=== PATIENT | male | born 1955 | race Caucasian/White ===

== ENCOUNTER 2020-06-04 19:43 | Inpatient (IN) | payer OTHER ==
[~2020-06-04] VITALS: Ht 162.6 cm; Wt 68.0 kg
[2020-06-04] MEDS ORDERED: CLONAZEPAM0.25 MG (20:11)
[2020-06-15] MEDS ORDERED: SINEMET PO (15:15)
[2020-06-15] MEDS ORDERED: [UNRECOGNIZED DRUG - OTHER] PO (15:15)
== END 2020-06-15 17:17 | disposition home or self-care (01) | DRG 177 ==
LOC: ER 19:43 → MEDJ 06-05 11:24
PROVIDERS: ADMIT Internal Medicine; ATTEND Internal Medicine
PROC: 4A033R1 Measurement of Arterial Saturation, Peripheral, Percutaneous Approach (ICD-10-PCS; principal; 2020-06-05)
PROC: 3E0F7SF Introduction of Other Gas into Respiratory Tract, Via Natural or Artificial Opening (ICD-10-PCS; 2020-06-05)
PROC: CB2YYZZ Tomographic (Tomo) Nuclear Medicine Imaging of Respiratory System using Other Radionuclide (ICD-10-PCS; 2020-06-05)
PROC: 8E0ZXY6 Isolation (ICD-10-PCS; 2020-06-05)
PROC: 4A12X4Z Monitoring of Cardiac Electrical Activity, External Approach (ICD-10-PCS; 2020-06-05)
DX: U07.1 COVID-19 (principal); J12.89 Other viral pneumonia; B37.1 Pulmonary candidiasis; B37.0 Candidal stomatitis; F41.8 Other specified anxiety disorders; R09.02 Hypoxemia; R74.01 Elevation of levels of liver transaminase levels; R43.0 Anosmia; R43.2 Parageusia; K76.0 Fatty (change of) liver, not elsewhere classified; F17.290 Nicotine dependence, other tobacco product, uncomplicated; G20 Parkinson's disease

== ENCOUNTER 2024-03-03 13:11 | Outpatient (CLI) | payer OTHER ==
[~2024-03-03 13:11] MED LIST: BREYNA 160-4.10.3 GM IH; BUDESONIDE0.5 MG/2 M IH; CLONAZEPAM0.25 MG; COZAAR25 MG; DARZALEX FASPRO15 ML SQ; LEVALBUTER0.31 MG/3 IH; METHYLPREDNISOLO4 M1 PO; NORVASC5 MG PO; PROTONIX40 MG PO; REVLIMID25 MG PO; SINEMET PO; TUSSIN CF MAX118 M1 PO; VENTOLIN HFA18 GM IH; [UNRECOGNIZED DRUG - OTHER] PO
== END 2024-03-03 13:12 | disposition home or self-care (01) ==
LOC: TOM 13:11
PROVIDERS: ATTEND Internal Medicine Pulmonary Disease
DX: R06.02 Shortness of breath (principal); R05.3 Chronic cough

== ENCOUNTER 2024-04-13 08:15 | Outpatient (CLI) | payer OTHER | END 2024-04-13 08:16 | disposition home or self-care (01) | LOC: NUCLEAR 08:15 | PROVIDERS: ATTEND Internal Medicine Pulmonary Disease | DX: R06.02 Shortness of breath (principal) ==

== ENCOUNTER 2024-07-10 06:39 | Emergency (ER) | payer OTHER ==
[~2024-07-10] VITALS: Ht 165.1 cm; Wt 68.0 kg
[2024-07-10] MEDS ORDERED: REVLIMID20 MG PO (07:37)
[2024-07-10] MEDS ORDERED: AMLODIPINE BESYL5 MG (07:37)
[2024-07-10] MEDS ORDERED: 0.9 % SODIUM CHLORIDE 1,000 ML IV STA (08:10)
[2024-07-10] MEDS ORDERED: FAMOtidine 10 MG/ML (4ML VIAL) IV STA (08:10)
[2024-07-10] MEDS ORDERED: MEPERIDINE HCL 25 MG/ML AMPUL IM STA (08:11)
[2024-07-10 08:54] LABS: HEMATOCRIT 37.1 % (39.0-48.0); MEAN CELL VOLUME 87.9 fL (80.0-100.00); MEAN CORPUSCULAR HEMOGLOBIN 28.4 pg (27.00-32.0); MEAN CORPUSCULAR HGB CONC 32.4 g/dl (32.0-36.0); PLATELET COUNT 137 K/uL (150-450); RED BLOOD COUNT 4.22 M/uL (4.00-6.00); RED CELL DISTRIBUTION WIDTH 17.1 % (11.5-14.5)
[2024-07-10 09:09] LABS: PH,URINE 5.5 (5.0-8.0); URINE APPEARANCE Clear; URINE BILIRRUBIN Negative (NEGATIVE); URINE BLOOD Negative; URINE COLOR Yellow; URINE GLUCOSE Negative (NEGATIVE); URINE KETONE Negative (NEGATIVE); URINE LEUKOCYTE Negative; URINE NITRATE Negative; URINE PROTEIN Negative (NEGATIVE); URINE UROBILINOGEN 0.2 E.U./dl
[2024-07-10 09:10] LABS: URINE BACTERIA 7.3 uL (0.0-1933); URINE CAST 0.29 uL (0.0-1.40); URINE EPITHELIAL CELLS 2.3 uL (0.0-38.8); URINE RBC 7.2 uL (0.0-20.8); URINE WBC 2.5 uL (0.0-23.2)
[2024-07-10 09:28] LABS: ALBUMIN 4.2 gm/dL (3.4-5.0); BILIRUBIN TOTAL 0.65 mg/dL (0.3-1.2); BILIRUBIN,CONJUGATED 0.14 mg/dL (0.0-0.2); BILIRUBIN,UNCONJUGATED 0.51 mg/dL (0.0-0.6); CALCIUM 9.1 mg/dL (8.5-10.1); CREATININE SERUM 1.55 mg/dL (0.70-1.30); GFR 44.68; POTASSIUM 4.27 mEq/L (3.5-5.1); TOTAL PROTEIN 7.6 gm/dL (6.4-8.2)
== END 2024-07-10 15:53 | disposition home or self-care (01) ==
LOC: ER 06:41
PROVIDERS: General Practice
DX: R10.9 Unspecified abdominal pain (principal); C90.00 Multiple myeloma not having achieved remission; D63.0 Anemia in neoplastic disease; M19.90 Unspecified osteoarthritis, unspecified site; K57.32 Diverticulitis of large intestine without perforation or abscess without bleeding; N18.31 Chronic kidney disease, stage 3a; E13.9 Other specified diabetes mellitus without complications; E86.0 Dehydration; K52.1 Toxic gastroenteritis and colitis; D70.1 Agranulocytosis secondary to cancer chemotherapy; T45.1X5A Adverse effect of antineoplastic and immunosuppressive drugs, initial encounter
CPT/HCPCS: 36415; 96365; 96366; 99282; J2175; J3490; J7030

== ENCOUNTER 2024-09-15 12:32 | Outpatient (CLI) | payer OTHER ==
[~2024-09-15 12:32] MED LIST changes: +AMLODIPINE BESYL5 MG; +REVLIMID20 MG PO
== END 2024-09-15 12:38 | disposition home or self-care (01) ==
LOC: TOM 12:32
PROVIDERS: ATTEND Internal Medicine Pulmonary Disease
DX: R91.8 Other nonspecific abnormal finding of lung field (principal)

== ENCOUNTER 2024-10-19 11:38 | Emergency (ER) | payer OTHER ==
[~2024-10-19] VITALS: Ht 165.1 cm; Wt 72.6 kg
[2024-10-19 13:12] LABS: HEMATOCRIT 36.8 % (39.0-48.0); HEMOGLOBIN 11.9 g/dL (13-16.00); MEAN CORPUSCULAR HEMOGLOBIN 28.2 pg (27.00-32.0); MEAN CORPUSCULAR HGB CONC 32.4 g/dl (32.0-36.0); PLATELET COUNT 167 K/uL (150-450); RED BLOOD COUNT 4.23 M/uL (4.00-6.00); RED CELL DISTRIBUTION WIDTH 17.8 % (11.5-14.5)
[2024-10-19 13:20] LABS: URINE APPEARANCE Clear; URINE BILIRRUBIN Negative (NEGATIVE); URINE BLOOD Negative; URINE COLOR Yellow; URINE GLUCOSE Negative (NEGATIVE); URINE KETONE Negative (NEGATIVE); URINE LEUKOCYTE Negative; URINE NITRATE Negative; URINE PROTEIN Negative (NEGATIVE); URINE UROBILINOGEN 0.2 E.U./dl
[2024-10-19 13:23] LABS: URINE EPITHELIAL CELLS 4.7 uL (0.0-38.8); URINE RBC 3.2 uL (0.0-20.8); URINE WBC 4.8 uL (0.0-23.2)
[2024-10-19 13:26] LABS: INR 1.02; PARTIAL THROMBOPLASTIN TIME 22.1 SECONDS (22.0-34.0); PROTHROMBIN TIME 11.1 SECONDS (9.0-11.5)
[2024-10-19 13:38] LABS: URINE CAST 0.88 uL (0.0-1.40)
[2024-10-19 14:08] LABS: CALCIUM 8.7 mg/dL (8.5-10.1); CREATININE SERUM 1.63 mg/dL (0.70-1.30); GFR 42.16; POTASSIUM 4.93 mEq/L (3.5-5.1)
== END 2024-10-19 15:34 | disposition home or self-care (01) ==
LOC: ER 11:39
PROVIDERS: Emergency Medicine
DX: D70.1 Agranulocytosis secondary to cancer chemotherapy (principal); C90.00 Multiple myeloma not having achieved remission; T45.1X5A Adverse effect of antineoplastic and immunosuppressive drugs, initial encounter; R07.89 Other chest pain; Z20.822 Contact with and (suspected) exposure to COVID-19

== ENCOUNTER 2024-12-12 22:44 | Emergency (ER) | payer OTHER ==
[~2024-12-12] VITALS: Ht 165.1 cm; Wt 74.4 kg
[2024-12-12] MEDS ORDERED: ACETAMINOPHEN 500 MG GEL..CAP PO ONE (23:47)
[2024-12-13] MEDS ORDERED: HYDROCODONE/CHLORPHEN P-STIREX 5 ML ML PO STA (02:54)
[2024-12-13] MEDS ORDERED: 0.9 % SODIUM CHLORIDE 500 ML IV STA (02:55)
[2024-12-13] MEDS ORDERED: CEFTRIAXONE SODIUM 2,000 MG VIAL IV STA (02:59)
[2024-12-13] MEDS ORDERED: IPRATROPIUM/ALBUTEROL SULFATE 3 ML AMPUL.NEB IH SCH (02:59)
[2024-12-13] MEDS ORDERED: CEFTRIAXONE SODIUM 2,000 MG VIAL ONE (03:01)
[2024-12-13 03:49] LABS: BASO % 0.4 % (0.1-1.2); EOS # 0.01 (0.04-0.54); EOS % 0.4 % (0.7-7.0); HEMATOCRIT 36.6 % (40.1-51.0); HEMOGLOBIN 11.6 g/dL (13.7-17.5); LYMPH # 0.41 (1.18-3.74); LYMPH % 16.9 % (19.3-53.1); MEAN CORPUSCULAR HEMOGLOBIN 27.5 pg (25.6-32.2); MONO # 0.14 (0.24-0.82); MONO % 5.8 % (4.7-12.5); NEUT # 1.84 (1.56-6.13); NEUT % 76.1 % (34.0-71.1); RED BLOOD COUNT 4.22 M/uL (4.63-6.08); RED CELL DISTRIBUTION WIDTH 16.1 % (11.6-14.4)
[2024-12-13 04:11] LABS: ALBUMIN 3.9 gm/dL (3.4-5.0); BILIRUBIN TOTAL 0.9 mg/dL (0.3-1.2); CALCIUM 8.6 mg/dL (8.5-10.1); CREATININE SERUM 1.79 mg/dL (0.70-1.30); GFR 37.84; GLOBULINA 3.7 G/DL (2.4-3.5); POTASSIUM 4.31 mEq/L (3.5-5.1); TOTAL PROTEIN 7.6 gm/dL (6.4-8.2)
[2024-12-13] MEDS ORDERED: IPRATROPIUM/ALBUTEROL SULFATE 3 ML AMPUL.NEB IH ONE (04:20)
[2024-12-13 04:30] LABS: PLATELET COUNT 76 K/uL (163-369)
[2024-12-13 04:38] LABS: COVID-19 AG NEGATIVE (NEGATIVE)
[2024-12-13 04:44] LABS: INFLUENZA A AG NEGATIVE (NEGATIVE); INFLUENZA B AG NEGATIVE (NEGATIVE)
[2024-12-13 07:03] LABS: ABG PH 7.423 (7.35-7.45); ABG PO2 68.1 mmHg (80-100); ABG pCO2 36.8 mmHg (35-45); BASE EXCESS -0.5 mmol/l; BICARBONATE 23.4 mmol/l (23-25); SaO2 93.7 %; Tco2 24.6 mmol/l; allen test SATISFACTORY; mode ROOM AIR; o2 21 %; puncture site RADIAL RIGHT
== END 2024-12-13 05:44 | disposition home or self-care (01) ==
LOC: ER 23:58
DX: J40 Bronchitis, not specified as acute or chronic (principal); Z85.89 Personal history of malignant neoplasm of other organs and systems; Z20.822 Contact with and (suspected) exposure to COVID-19

== ENCOUNTER 2025-01-11 12:37 | Emergency (ER) | payer OTHER ==
[~2025-01-11] VITALS: Ht 165.1 cm; Wt 69.9 kg
[2025-01-11 14:16] VITALS: BP 150/76; O2SAT 98
[2025-01-11] MEDS ORDERED: GUAIFENESIN/DEXTROMETHORPHAN 100MG/10ML BLIST.PACK PO ONE (15:00)
[2025-01-11] MEDS ORDERED: LEVALBUTEROL HCL 1.25 MG/3 ML SOLUTION IH ONE (15:00)
[2025-01-11] MEDS ORDERED: IPRATROPIUM BROMIDE 0.5 MG/2.5 ML AMPUL.NEB IH ONE (15:00)
[2025-01-11 16:06] LABS: INFLUENZA A AG POSITIVE (NEGATIVE); INFLUENZA B AG NEGATIVE (NEGATIVE)
[2025-01-11 16:15] LABS: INR 1.1; PARTIAL THROMBOPLASTIN TIME 23.5 SECONDS (22.0-34.0); PROTHROMBIN TIME 11.9 SECONDS (9.0-11.5)
[2025-01-11 16:20] LABS: ALBUMIN 3.9 gm/dL (3.4-5.0); BILIRUBIN TOTAL 0.86 mg/dL (0.3-1.2); CALCIUM 8.8 mg/dL (8.5-10.1); CREATININE SERUM 1.87 mg/dL (0.70-1.30); GFR 35.98; GLOBULINA 4.2 G/DL (2.4-3.5); POTASSIUM 4.27 mEq/L (3.5-5.1); TOTAL PROTEIN 8.1 gm/dL (6.4-8.2)
[2025-01-11 16:28] LABS: PH,URINE 5.5 (5.0-8.0); URINE APPEARANCE Clear; URINE BILIRRUBIN Negative (NEGATIVE); URINE BLOOD Moderate; URINE COLOR Yellow; URINE GLUCOSE Negative (NEGATIVE); URINE KETONE Trace (NEGATIVE); URINE LEUKOCYTE Negative; URINE NITRATE Negative; URINE UROBILINOGEN 0.2 E.U./dl
[2025-01-11 16:31] LABS: URINE EPITHELIAL CELLS 20.1 uL (0.0-38.8); URINE RBC 121.7 uL (0.0-20.8); URINE WBC 4.1 uL (0.0-23.2)
[2025-01-11 17:13] LABS: URINE CAST 0.73 uL (0.0-1.40); URINE PROTEIN 100 (NEGATIVE)
[2025-01-11 17:14] LABS: URINE YEAST FEW /hpf
[2025-01-11] MEDS ORDERED: OSELTAMIVIR PHOSPHATE 75 MG CAPSULE PO ONE (17:15)
[2025-01-11 18:01] LABS: BASO % 0.4 % (0.1-1.2); EOS # 0.01 (0.04-0.54); EOS % 0.4 % (0.7-7.0); HEMATOCRIT 38.4 % (40.1-51.0); HEMOGLOBIN 12.3 g/dL (13.7-17.5); LYMPH # 0.62 (1.18-3.74); LYMPH % 23.6 % (19.3-53.1); MEAN CORPUSCULAR HEMOGLOBIN 28.3 pg (25.6-32.2); MONO # 0.21 (0.24-0.82); NEUT # 1.75 (1.56-6.13); NEUT % 66.5 % (34.0-71.1); RED BLOOD COUNT 4.35 M/uL (4.63-6.08); RED CELL DISTRIBUTION WIDTH 18.6 % (11.6-14.4)
[2025-01-11 18:12] LABS: PLATELET COUNT 87 K/uL (163-369)
[2025-01-11] MEDS ORDERED: ACETAMINOPHEN 500 MG GEL..CAP PO ONE (18:30)
[2025-01-11 19:19] LABS: COVID-19 AG NEGATIVE (NEGATIVE)
[2025-01-11] MEDS ORDERED: OSEL75CA PO (19:40)
[2025-01-11] MEDS ORDERED: TUSSIN DM LIQU118 ML PO (19:40)
== END 2025-01-11 20:04 ==
LOC: ER 12:37
PROVIDERS: Emergency Medicine
DX: J10.1 Influenza due to other identified influenza virus with other respiratory manifestations (principal); Z20.822 Contact with and (suspected) exposure to COVID-19; I10 Essential (primary) hypertension